=== PATIENT | male | born 1950 | race Caucasian/White ===

== ENCOUNTER 2024-02-08 09:41 | Day surgery (SDC) | payer OTHER ==
[~2024-02-08] VITALS: Ht 167.7 cm; Wt 92.0 kg
[2024-02-08] MEDS ORDERED: ELIQUIS 5MG PO (10:32)
[2024-02-08] MEDS ORDERED: CARDIZEM CD 30300 MG PO (10:32)
[2024-02-08] MEDS ORDERED: MULTAQ400 MG PO (10:32)
[2024-02-08] MEDS ORDERED: LIPITOR 80MG80 MG PO (10:33)
[2024-02-08] MEDS ORDERED: PEPCID 20MG TAB20 MG PO (10:33)
[2024-02-08] MEDS ORDERED: VISINE TEARS 0.30 ML OU (10:34)
[2024-02-08] MEDS ORDERED: REFRESH TEARS 330 ML OP (10:34)
[2024-02-08] MEDS ORDERED: EYE DROPS ALLER15 ML OP (10:35)
[2024-02-08 10:47] VITALS: BP 150/87; PULSE 66; TEMP 97.9
[2024-02-08] MEDS ORDERED: CEPHALEXIN500 M1 PO (11:12)
[2024-02-08 11:15] VITALS: BP 139/83; PULSE 60
[2024-02-08 11:30] VITALS: BP 142/85; PULSE 57
--- NOTE | 2024-02-08 11:37 | NUR ---
DC instructions reviewed with pt and . Both express understanding. Monitor usage discussed at length with pt and and KATHRYN Gonzales in rn labor delivery. Dressing remains clean, dry and intact. Pt exits dept with steady gait, escorted out to elevator. Free of complaints at discharge.
== END 2024-02-08 11:37 | disposition home or self-care (01) ==
LOC: COL.CAR 09:41
DX: I48.19 Other persistent atrial fibrillation (principal); G47.33 Obstructive sleep apnea (adult) (pediatric); E66.9 Obesity, unspecified; Z79.01 Long term (current) use of anticoagulants; Z79.02 Long term (current) use of antithrombotics/antiplatelets; Z68.33 Body mass index [BMI] 33.0-33.9, adult
CPT/HCPCS: C1764